=== PATIENT | male | born 1980 | race Caucasian/White ===

== ENCOUNTER 2021-11-07 16:55 | Emergency (ER) | payer SELFPAY ==
--- NOTE | 2021-11-07 19:18 | PHYS DOC ---
Adult General HPI HPI Patient is a 41-year-old male patient with history of hypertension presenting today complaining of productive cough and nasal congestion, symptoms began 1 week ago. Patient states he needed a sinus infection and was seen by the PCP, he states they started him on Augmentin which he is still taking. He states he is not improving. Denies any fever. (ELANA LATIF APRN) Review of Systems Review of Systems Constitutional: Denies fever or chills [] Eyes: Denies change in visual acuity, redness, or eye pain [] HENT: Reports nasal congestion, denies sore throat [] Respiratory: Reports cough, denies shortness of breath [] Cardiovascular: No additional information not addressed in HPI [] GI: Denies abdominal pain, nausea, vomiting, bloody stools or diarrhea [] : Denies dysuria or hematuria [] Musculoskeletal: Denies back pain or joint pain [] Integument: Denies rash or skin lesions [] Neurologic: Denies headache, focal weakness or sensory changes [] All other systems were reviewed and found to be within normal limits, except as documented in this note. (ELANA LATIF APRN) Physical Exam Physical Exam Constitutional: Obese patient. Well developed, well nourished, no acute distress, non-toxic appearance. [] HENT: Normocephalic, atraumatic, bilateral external ears normal, oropharynx moist, no oral exudates, nose normal. [] Eyes: PERRLA, EOMI, conjunctiva normal, no discharge. [] Neck: Normal range of motion, no tenderness, supple, no stridor. [] Cardiovascular:Heart rate regular rhythm, no murmur [] Lungs & Thorax: Bilateral breath sounds clear to auscultation [] Abdomen: Bowel sounds normal, soft, no tenderness, no masses, no pulsatile masses. [] Skin: Warm, dry, no erythema, no rash. [] Back: No tenderness, no CVA tenderness. [] Extremities: No tenderness, no cyanosis, no clubbing, ROM intact, no edema. [] Neurologic: Alert and oriented X 3, normal motor function, normal sensory function, no focal deficits noted. [] Psychologic: Affect normal, judgement normal, mood normal. [] (ELANA LATIF APRN) EKG EKG [] (ELANA LATIF APRN) Radiology/Procedures Radiology/Procedures []PROCEDURE: PORTABLE CHEST 1V XR CHEST 1V 11/07/2021 5:50 PM INDICATION: Chest pain COMPARISON: None available TECHNIQUE: Portable frontal view of the chest is provided. FINDINGS: The cardiomediastinal silhouette is within normal limits. Mild to moderate bilateral perihilar interstitial airspace disease. There are no significant pleural effusions. There is no pulmonary vascular congestion. No pneumothorax. No suspicious osseous abnormality. IMPRESSION: Mild to moderate bilateral perihilar interstitial changes are identified without focal consolidative change. Consideration may be given for interstitial pneumonitis of infectious/inflammatory etiology versus interstitial edema. Electronically signed by: Master Russo MD (11/07/2021 7:57 PM) [facility] DICTATED AND SIGNED BY: MASTER RUSSO MD DATE: 11/07/211944 CC: ELANA LATIF APRN; PCP,NO ~MTH0 0 (ELANA LATIF APRN) Heart Score C/O Chest Pain: N/A Risk Factors: Risk Factors: DM, Current or recent (<one month) smoker, HTN, HLP, family history of CAD, obesity. Risk Scores: Risk Factors: DM, Current or recent (<one month) smoker, HTN, HLP, family history of CAD, obesity. (ELANA LATIF APRN) Course & Med Decision Making Course & Med Decision Making Pertinent Labs and Imaging studies reviewed. (See chart for details) This is a 41-year-old male patient presenting to the ED today complaining of cough and nasal congestion, symptoms began a week ago. Currently on Augmentin for sinusitis. States he is not improving. Negative influenza rapid influenza a and B, negative rapid Covid test. Chest x-ray interpreted by radiologist was noted for mild to moderate bilateral perihilar interstitial changes are identified without focal consolidative change. Consideration may be given for interstitial pneumonitis of infectious/inflammatory etiology versus interstitial edema. Patient's O2 sats have been 99%-100% on room air. The rest of his vitals are negative. Negative rapid COVID19 test, negative for influenza A and B. Patient was switched to doxycycline, between her and Decadron. Follow-up with PCP in 1 to 2 weeks. (ELANA LATIF APRN) Course & Med Decision Making Did not see or evaluate patient. Did not discuss patient with [employer]. Agree with [employer]'s work-up and disposition per note (MARIAM FISHMAN MD) Dragon Disclaimer Dragon Disclaimer This electronic medical record was generated, in whole or in part, using a voice recognition dictation system. (ELANA LATIF Sol HUBBARD) Departure Departure: Impression: Primary Impression: Bilateral pneumonia Additional Impression: URI (upper respiratory infection) Disposition: HOME / SELF CARE / HOMELESS Condition: STABLE Referrals: PCP,NO (PCP) follow up in 1-2 weeks Patient Instructions: Pneumonia, Adult, [id number]-nd-Bctp Additional Instructions: You were evaluated in the emergency room, your chest x-ray was concerning for pneumonia. We switched you from Augmentin to doxycycline. Take it as prescribed. Follow-up with your doctor in 1 week. Scripts Albuterol Sulfate (Ventolin Hfa) 8 Gm Hfa.aer.ad 1 GM IH Q4HRS, #1 EACH Prov: ELANA LATIF Sol HUBBARD 11/07/21 Dexamethasone (Decadron) 4 Mg Tablet 1 TAB PO BID for 5 Days, #10 TAB 0 Refills Prov: ELANA LATIF Sol HUBBARD 11/07/21 Doxycycline Hyclate (DOXYCYCLINE HYCLATE) 100 Mg Tablet 1 TAB PO BID, #20 TAB Prov: BHAVYAELANA Sol HUBBARD 11/07/21 Problem Qualifiers Primary Impression: Bilateral pneumonia Pneumonia type: due to unspecified organism Lung location: unspecified part of lung Qualified Codes: J18.9 - Pneumonia, unspecified organism Additional Impression: URI (upper respiratory infection) URI type: unspecified URI Qualified Codes: J06.9 - Acute upper respiratory infection, unspecified BHAVYAELANA Horton APRN Nov 07, 2021 19:18 MARIAM FISHMAN MD Nov 07, 2021 23:12
--- NOTE | 2021-11-07 20:00 | RAD ---
XR CHEST 1V 11/07/2021 5:50 PM INDICATION: Chest pain COMPARISON: None available TECHNIQUE: Portable frontal view of the chest is provided. FINDINGS: The cardiomediastinal silhouette is within normal limits. Mild to moderate bilateral perihilar inters titial airspace disease. There are no significant pleural effusions. There is no pulmonary vascular congestion. No pneumothora x. No suspicious osseous abnormality. IMPRESSION: Mild to moderate bilateral perihilar interstitial changes are identified without focal consolidative change. Consideration may be given for interstitial pneumonitis of infectious/inflammatory etiology v ersus interstitial edema. Electronically signed by: Adrianna Mooney MD (11/07/2021 7:57 PM) [facility]
[2021-11-07] MEDS ORDERED: DOXYCYCLINE HYCLATE 100 MG TABLET PO ONE (20:30)
[2021-11-07] MEDS ORDERED: ALBU8HFA2 IH (20:40)
[2021-11-07] MEDS ORDERED: DOXY100T PO (20:40)
[2021-11-07] MEDS ORDERED: DEXA4TAB63 PO (20:40)
[2021-11-07 20:57] LABS: INFLUENZA A PATIENT NEGATIVE (NEGATIVE); INFLUENZA B PATIENT NEGATIVE (NEGATIVE)
--- NOTE | 2021-11-08 14:26 | NUR ---
Positive for COVID 19. The number listed in the chart belongs to the mother, spoke to the mother who states she does not live with patient. She gave me patient's phone number which is [phone]. Unable to get a hold of patient through this number.
== END 2021-11-07 20:55 | disposition home or self-care (01) ==
LOC: ER 16:55
DX: J18.9 Pneumonia, unspecified organism (principal); J06.9 Acute upper respiratory infection, unspecified; Z20.822 Contact with and (suspected) exposure to COVID-19
CPT/HCPCS: 71045; 87426; 87804; 99284; C9803; U0003